=== PATIENT | female | born 1975 | race Caucasian/White ===

== ENCOUNTER 2017-09-10 16:55 | Emergency (ER) | payer OTHER ==
[2017-09-10 18:33] VITALS: BP 141/84
--- NOTE | 2017-09-10 18:53 | UC ---
Respiratory Complaint HPI - HPI Summary HPI Summary: Pt c/o cough , fever, chills, X 1 week. - History of Current Complaint Stated Complaint: FEVER Time Seen by Provider: 09/10/17 18:25 Hx Obtained From: Patient Hx Last Menstrual Period: unknown ?: No Onset/Duration: Gradual Onset, Lasting Days, Still Present Timing: Constant Severity Initially: Moderate Severity Currently: Mild Character: Cough: Nonproductive Aggravating Factors: Nothing Alleviating Factors: Nothing Associated Signs And Symptoms: Positive: Fever, URI, Nasal Congestion - Risk Factors Pulmonary Embolism Risk Factors: Negative Cardiac Risk Factors: Negative Pseudomonas Risk Factors: Negative Tuberculosis Risk Factors: Negative - Allergies/Home Medications Allergies/Adverse Reactions: Allergies Allergy/AdvReac Type Severity Reaction Status Date / Time Naproxen Allergy Intermediate Hives Verified 09/10/17 18:26 Home Medications: Home Medications Acetaminophen [Acetaminophen Extra Stren] 1,000 mg PO Q6H PRN 09/10/17 [History Confirmed 09/10/17] Phenylephrine-Chlorpheniramine [[place] Plus Cold & 5-2-10-325 mg] 2 cap PO BID PRN 09/10/17 [History Confirmed 09/10/17] PMH/Surg Hx/FS Hx/Imm Hx Previously Healthy: Yes - Surgical History Surgical History: Yes Surgery Procedure, Year, and Place: Uterine Ablation, 2011, [place]. Appendectomy, 1992, [facility]. Meckel's Diverticulitis, 1992, [facility]. [facility] - Family History Known Family History: Positive: None, Cardiac Disease, Hypertension, Diabetes - Social History Occupation: Employed Full-time Lives: With Family Alcohol Use: Occasionally Substance Use Type: None Smoking Status (MU): Former Smoker Type: Cigarettes Have You Smoked in the Last Year: No When Did the Patient Quit Smoking/Using Tobacco: 2009 - Immunization History Most Recent Influenza Vaccination: not this season Review of Systems Constitutional: Fever, Chills, Fatigue Skin: Negative Eyes: Negative ENT: Sinus Congestion Respiratory: Cough Cardiovascular: Negative Gastrointestinal: Negative Genitourinary: Negative Motor: Negative Neurovascular: Negative Musculoskeletal: Negative Neurological: Negative Psychological: Negative Is Patient Immunocompromised?: No All Other Systems Reviewed And Are Negative: Yes Physical Exam Triage Information Reviewed: Yes Appearance: Ill-Appearing, Other: - unkempt Vital Signs: Initial Vital Signs Temp 101.1 F 09/10/17 18:29 Pulse 105 09/10/17 18:29 Resp 20 09/10/17 18:29 BP 141/84 09/10/17 18:29 Pulse Ox 99 09/10/17 18:29 Vital Signs Reviewed: Yes Eye Exam: Normal ENT Exam: Other ENT: Positive: Nasal congestion Dental Exam: Normal Neck exam: Normal Respiratory Exam: Normal Cardiovascular Exam: Normal Musculoskeletal Exam: Normal Neurological Exam: Normal Psychological Exam: Normal Skin Exam: Normal UC Diagnostic Evaluation - Laboratory O2 Sat by Pulse Oximetry: 99 Respiratory Course/Dx - Differential Dx/Diagnosis Differential Diagnosis/HQI/PQRI: Bronchitis, Influenza Provider Diagnoses: Bronchitis. fever Discharge - Discharge Plan Condition: Stable Disposition: HOME Prescriptions: Azithromycin TAB* [Zithromax TAB (Z-MARLA) 250 mg #6 tabs] 250 mg PO DAILY #4 tab Patient Education Materials: Fever in Adults (ED), Acute Bronchitis (ED) Forms: *Work Release Referrals: Yaa Ely PA [Primary Care Provider] - If Needed
[2017-09-10] MEDS ORDERED: Azithromycin TAB* 250 MG PO ONE (18:56)
== END 2017-09-10 19:04 | disposition home or self-care (01) ==
LOC: UCCORT 16:55
DX: J40 Bronchitis, not specified as acute or chronic (principal); R50.9 Fever, unspecified; Z88.6 Allergy status to analgesic agent; Z87.891 Personal history of nicotine dependence
CPT/HCPCS: 87502; 99212; A9270-GY; G0463

== ENCOUNTER 2017-11-14 07:38 | Emergency (ER) | payer OTHER ==
[2017-11-14 07:55] VITALS: BP 138/88
--- NOTE | 2017-11-14 08:03 | UC ---
Throat Pain/Nasal Jose HPI - HPI Summary HPI Summary: sore throat x 4 days bilateral ear pain , nasal congestion , cough no fever, + chills - History of Current Complaint Chief Complaint: UCGeneralIllness Stated Complaint: COLD SYMPTOMS Time Seen by Provider: 11/14/17 07:55 Hx Obtained From: Patient Hx Last Menstrual Period: unknown Onset/Duration: Gradual Onset, Lasting Days - 4, Still Present Severity: Moderate Pain Intensity: 3 Cough: Nonproductive Associated Signs & Symptoms: Positive: Nasal Discharge. Negative: Wheezing, Hoarseness, Sinus Discomfort, Fever, Vomiting, Rash - Allergies/Home Medications Allergies/Adverse Reactions: Allergies Allergy/AdvReac Type Severity Reaction Status Date / Time MS Naproxen [Naproxen] Allergy Intermediate Hives Verified 09/10/17 18:26 PMH/Surg Hx/FS Hx/Imm Hx GI/ History: Diverticulitis Psychological History: Anxiety - Surgical History Surgical History: Yes Surgery Procedure, Year, and Place: Uterine Ablation, 2011, [place]. Appendectomy, 1992, [facility]. Meckel's Diverticulitis, 1992, [facility]. [facility] - Family History Known Family History: Positive: None, Cardiac Disease, Hypertension, Diabetes - Social History Alcohol Use: None Substance Use Type: None Smoking Status (MU): Former Smoker Type: Cigarettes Have You Smoked in the Last Year: No When Did the Patient Quit Smoking/Using Tobacco: 2009 - Immunization History Most Recent Influenza Vaccination: not this season Review of Systems Constitutional: Chills, Fatigue Skin: Negative Eyes: Negative ENT: Sore Throat, Ear Ache, Nasal Discharge, Sinus Congestion, Sinus Pain/ Tenderness Respiratory: Cough Cardiovascular: Negative Gastrointestinal: Negative Is Patient Immunocompromised?: No All Other Systems Reviewed And Are Negative: Yes Physical Exam Triage Information Reviewed: Yes Appearance: Well-Appearing, No Pain Distress, Well-Nourished Vital Signs: Initial Vital Signs Temp 98.8 F 11/14/17 07:52 Pulse 86 11/14/17 07:52 Resp 18 11/14/17 07:52 BP 138/88 11/14/17 07:52 Pulse Ox 99 11/14/17 07:52 Vital Signs Reviewed: Yes Eye Exam: Normal Eyes: Positive: Conjunctiva Clear ENT: Positive: Normal ENT inspection, Hearing grossly normal, Pharyngeal erythema, Nasal drainage, TMs normal. Negative: TM bulging, TM dull, TM red, Tonsillar swelling, Tonsillar exudate, Trismus Neck: Positive: Supple, Nontender, No Lymphadenopathy Respiratory: Positive: Chest non-tender, Lungs clear, Normal breath sounds, No respiratory distress Cardiovascular: Positive: RRR, No Murmur, Pulses Normal Skin Exam: Normal Throat Pain/Nasal Course/Dx - Differential Dx/Diagnosis Provider Diagnoses: pharyngitis Discharge - Sign-Out/Discharge Documenting (check all that apply): Discharge - Discharge Plan Condition: Critical Disposition: HOME Patient Education Materials: Pharyngitis (ED) Referrals: Yaa Ely PA [Primary Care Provider] - 7 Days - Billing Disposition and Condition Condition: CRITICAL Disposition: HOME
== END 2017-11-14 08:25 | disposition home or self-care (01) ==
LOC: UCCORT 07:38
DX: J02.9 Acute pharyngitis, unspecified (principal); Z88.8 Allergy status to other drugs, medicaments and biological substances; Z87.891 Personal history of nicotine dependence
CPT/HCPCS: 87651; 99211; G0463